=== PATIENT | female | born 1990 | race Hispanic/Latino ===

== ENCOUNTER 2016-04-23 21:00 | Emergency (ER) | payer OTHER ==
[2016-04-23] MEDS ORDERED: ONDANSETRON 4MG/2ML VIAL (J2405) As Ordered ONE (22:40)
[2016-04-23 22:59] LABS: BASO % 0.3 % (0.0-1.0); EOS # 0.1 K/mm3 (0.0-0.50); EOS % 2.2 % (0.0-3.0); LARGE UNSTAINED CELL # 0.1 K/mm3 (0.0-0.4); LARGE UNSTAINED CELL % 2.2 % (0.0-4.0); LYMPH # 1.2 K/mm3 (1.5-6.5); LYMPH % 16.7 % (24.0-44.0); MEAN CORPUSCULAR HEMOGLOBIN 29.2 pg (27.0-33.0); MEAN CORPUSCULAR HGB CONC 35.1 g/dl (32.0-36.5); MEAN CORPUSCULAR VOLUME 83.1 fl (80.0-96.0); MONO # 0.6 K/mm3 (0.0-0.8); MONO % 9.4 % (0.0-5.0); NEUTROPHILS # 4.5 K/mm3 (1.8-7.7); NEUTROPHILS % 69.2 % (36.0-66.0); PLATELET COUNT, AUTOMATED 211 k/mm3 (150-450); RED CELL DISTRIBUTION WIDTH 12.7 % (11.5-14.5); WHITE BLOOD COUNT 6.5 K/mm3 (4.0-10.0)
[2016-04-23 23:50] LABS: ANION GAP 11 MEQ/L (8-16); BLOOD UREA NITROGEN 11 MG/DL (7-18); CALCIUM LEVEL 8.6 MG/DL (8.5-10.1); CARBON DIOXIDE LEVEL 27 MEQ/L (21-32); CHLORIDE LEVEL 101 MEQ/L (98-107); CREATININE FOR GFR 0.66 MG/DL (0.55-1.02); GLOMERULAR FILTRATION RATE > 60.0 (>60); GLUCOSE, FASTING 90 MG/DL (70-105); HCG, SERUM QUANTITATIVE 85367 MIU/ML; POTASSIUM SERUM 3.9 MEQ/L (3.5-5.1); SODIUM LEVEL 139 MEQ/L (136-145)
--- NOTE | 2016-04-23 23:50 | REPUSA ---
Clinical history: cramping, possible demise. Findings: Real-time transabdominal and transvaginal ultrasound images of the pelvis were obtained. Th ere is a single intrauterine gestation. The crown rump length measures 2.9 cm. heart rate measu res 197 bpm. There is no evidence of a subchorionic hemorrhage. The uterus is unremarkable. The right ovary measures 2.7 x 3.9 x 2.5 cm. The left ovary measures 3.3 x 3.7 x 1.9 cm. No adnexal masses are seen. Color Doppler flow is seen within both ovaries. There is no evidence of free fluid. Impression: Single live intrauterine measuring 9 weeks 5 days by ultrasound measurements wi th a heart rate of 197 bpm. Estimated due date is 11/21/2016. No gross abnormalities appreciated .
[2016-04-24] MEDS ORDERED: NITROFURANTOIN (MACROBID) 100 MG CAP As Ordered ONE (00:23)
--- NOTE | 2016-04-24 00:32 | EDDOCDS ---
Physician Documentation [facility] Name: Jere Roth Age: 25 yrs Sex: Female : 1990 Arrival Date: 04/23/2016 Time: 21:00 Bed I7 / 29 Private MD: [place] [facility] [place]position: 04/24/16 00:21 Discharged to Home/Self Care. Impression: Vomiting, related conditions, unspecified, Urinary tract infection, site not specified. - Condition is Stable. - Discharge Instructions: Clear Liquid Diet, Nausea and Vomiting. - Prescriptions for ZOFRAN ODT 4 mg - dissolve 1 tablet by ORAL route 4 times per day As needed do not chew, do not swallow whole; 10 tablet. Macrobid 100 mg Oral Capsule - take 100 milligram by ORAL route every 12 hours for 10 days; 20 capsule. - Medication Reconciliation, Local Pharmacy Hours form. - Follow up: [facility]; When: Tomorrow; Reason: Recheck today's complaints, Continuance of care. - Problem is new. - Symptoms have improved. - Notes: FOLLOW UP WITH [facility] TOMORROW, RETURN TO THE ER IF THE SYMPTOMS WORSEN OR BECOME CONCERNING Historical: - Allergies: No known drug Allergies; - Home Meds: 1. none - PMHx: none; - PSHx: none; - Social history: Smoking status: Patient states was never smoker of tobacco. Patient/guardian denies using alcohol, street drugs, No barriers to communication noted, Speaks appropriately for age. - Family history: Son has/had recent upper respiratory infection symptoms. - : The pt / caregiver states he / she is not on anticoagulants. Home medication list is obtained from the patient. - Exposure Risk Screening:: None identified. RIP TAILER: 04/23 21:12 LMP 02/01/2016 ttb Vital Signs: 21:01 BP 137 / 77; Pulse 124; Resp 18; Temp 99.5(O); Pulse Ox 100% on R/A; Weight 48.53 kg / lr2 106.99 lbs (R); Height 5 ft. 4 in. (162.56 cm) (R); Pain 8/10; 04/24 00:11 BP 124 / 74; Pulse 90; Resp 18; Temp 99.2; Pulse Ox 99% ; Pain 0/10; jlm 04/23 21:01 Body Mass Index 18.37 (48.53 kg, 162.56 cm) lr2 MDM: 04/23 22:35 IV Saline Lock ordered. ck7 22:35 Ondansetron 4 mg IVP once ordered. ck7 22:35 NS 0.9% 1000 ml IV at bolus once ordered. ck7 22:35 Obtain sample by nasopharyngeal swab ordered. ck7 22:35 CBC with Diff Ordered. EDMS 22:35 MED Profile Ordered. EDMS 22:35 Hcg, Serum Quantitative Ordered. EDMS 22:35 Type & Screen Ordered. EDMS 22:36 UA Ordered. EDMS 22:36 Urine Culture Ordered. EDMS 22:36 -Influenza A&B Rapid Antigen - Nose Ordered. EDMS 22:36 US 1st trimester Ordered. EDMS 23:17 DUPLEX SCAN LIMITED (DOPPLER) Ordered. EDMS 23:47 CBC with Diff Reviewed. ck7 23:47 UA Reviewed. ck7 23:47 -Influenza A&B Rapid Antigen - Nose Reviewed. ck7 04/24 00:07 MED Profile Reviewed. ck7 00:07 Hcg, Serum Quantitative Reviewed. ck7 00:07 Type & Screen Reviewed. ck7 00:22 Nitrofurantoin 100 mg PO once ordered. ck7 Administered Medications: 04/23 23:00 Drug: Ondansetron 4 mg [ondansetron HCl 2 mg/mL intravenous solution (2 mL)] Route: rs3 IVP; Site: right antecubital; 23:00 Drug: NS 0.9% 1000 ml [sodium chloride 0.9 % intravenous solution] Route: IV; Rate: rs3 bolus; Site: right antecubital; 04/24 00:08 Follow up: IV Status: Completed infusion kc3 00:29 Drug: Nitrofurantoin 100 mg [nitrofurantoin macrocrystal 50 mg capsule (2 caps)] Route: kc3 PO; Signatures: Dispatcher [employer] EDMS Collette MárquezRN RN lf1 Sathya Delgado RPA-C RPA-Cck7 Vale Ahn RN RN ttb Rosalina Burns RN RN kc3 Bernarda Cruz RN rs3 MTDD
--- NOTE | 2016-04-24 00:32 | EDDOCDS ---
Nurse's Notes [facility] Name: Jere Roth Age: 25 yrs Sex: Female : 1990 Arrival Date: 04/23/2016 Time: 21:00 Bed I7 / 29 Private MD: MARIELOS Mccarthy Diagnosis: Vomiting; related conditions, unspecified;Urinary tract infection, site not specified Presentation: 04/23 21:10 Presenting complaint: Patient states: n/v/headache, nasal congestion x2 days. Denies ttb fevers. Adult Sepsis Screening: The patient does not have new or worsening altered mentation. Patient's respiratory rate is less than 22. Systolic blood pressure is greater than 100. Patient has a qSOFA score of 0- Negative Sepsis Screen. Suicide/Homicide risk assessment- the patient denies having any suicidal and/or homicidal ideations and does not present with any other emotional, behavioral or mental health complaints. Status: The patient is a dependent. Transition of care: patient was not received from another setting of care. 21:10 Acuity: YOHANNES Level 4 ttb 21:10 Method Of Arrival: Walkin/Carried/Asstd ttb Triage Assessment: 21:12 General: Appears well nourished, well groomed, Behavior is appropriate for age, ttb cooperative, pleasant. Pain: Location: headache 10/05. HIV screening NA for this visit Offered previously. Neurological: Level of Consciousness is awake, alert, Speech is normal, Reports headache. EENT: Reports nasal congestion nasal discharge. Cardiovascular: Chest pain is denied. Respiratory: Airway is patent Respiratory effort is even, unlabored. GI: No deficits noted. Derm: Skin is normal. LEAD SHIPPER: 21:12 LMP 02/01/2016 ttb Historical: - Allergies: No known drug Allergies; - Home Meds: 1. none - PMHx: none; - PSHx: none; - Social history: Smoking status: Patient states was never smoker of tobacco. Patient/guardian denies using alcohol, street drugs, No barriers to communication noted, Speaks appropriately for age. - Family history: Son has/had recent upper respiratory infection symptoms. - : The pt / caregiver states he / she is not on anticoagulants. Home medication list is obtained from the patient. - Exposure Risk Screening:: None identified. Screenin:56 Screening information is obtained from the patient. Fall risk: No risks identified. lf1 Assistance ADL's: requires no assistance with activities of daily living. Nutritional screening: Has had N/V for 3 or more days. Advance Directives: Currently, there is no health care proxy. 23:07 Abuse/DV Screen: The patient / caregiver reports he/she is: not in a situation that kc3 causes fear, pain or injury. home support is adequate. Assessment: 21:56 Adult Sepsis Screening: The patient does not have new or worsening altered mentation. lf1 Patient's respiratory rate is less than 22. Systolic blood pressure is greater than 100. Patient has a qSOFA score of 0- Negative Sepsis Screen. General: Appears ill, Behavior is cooperative. Pain: Location: headache Pain currently is 7 out of 10 on a pain scale. Neurological: Level of Consciousness is awake, alert. EENT: Reports nasal congestion nasal discharge. Cardiovascular: Chest pain is denied. Respiratory: Reports cough that is. GI: Reports nausea, vomiting. Derm: Skin is normal. 22:55 General: Appears in no apparent distress, Behavior is appropriate for age, cooperative, rs3 reports of headache/nausea. ordered med Zofran IVP given. IVF NS bolus infusing. . 04/24 00:30 General: Appears in no apparent distress, comfortable, Behavior is appropriate for age, kc3 cooperative. Pain: Denies pain. Respiratory: Respiratory effort is even, unlabored. Derm: Skin is pink, warm & dry. Vital Signs: 04/23 21:01 BP 137 / 77; Pulse 124; Resp 18; Temp 99.5(O); Pulse Ox 100% on R/A; Weight 48.53 kg lr2 (R); Height 5 ft. 4 in. (162.56 cm) (R); Pain 8/10; 04/24 00:11 BP 124 / 74; Pulse 90; Resp 18; Temp 99.2; Pulse Ox 99% ; Pain 0/10; jlm 04/23 21:01 Body Mass Index 18.37 (48.53 kg, 162.56 cm) lr2 Vitals: 04/23 21: Log In Time: April 23, 2016 at 21:00. lr2 ED Course: 21:01 Patient visited by Yuliana Mtz. lr2 21:01 Patient moved to Waiting lr2 21:03 BE MccarthyC is Private Physician. lr2 21:03 Patient moved to Pre RCE lr2 21:11 Triage Initiated ttb 21:38 Patient moved to Triage 2 ms18 21:56 Patient visited by Collette Márquez RN. lf1 21:56 The patient / caregiver is instructed regarding the plan of care and ED course. lf1 21:58 Patient visited by Collette Márquez RN. lf1 22:14 Sath[facility] Delgado [facility]C [facility] ck7 22:14 Myles Smith DO is Attending Physician. ck7 22:14 Patient visited by Sathya Delgado RPA-C. ck7 22:44 Patient moved to I7 / 29 ar3 22:45 Patient visited by Sathya Delgado RPA-C. ck7 22:59 Patient moved to Ultrasound dmg 23:06 Inserted saline lock: 20 gauge in right antecubital area and blood collected. The kc3 patient tolerated the procedure well. placed by CHARLES Koroma. 23:21 Patient moved to I7 / dmg 23:46 Patient visited by Sathya Delgado RPA-C. ck7 04/24 00:13 US 1st trimester Returned. EDMS 00:21 Patient visited by Sathya Delgado RPA-C. ck7 00:21 DEA Moore is Referral Physician. ck7 00:22 Discontinued IV lock intact, bleeding controlled, pressure dressing applied, No kc3 redness/swelling at site. No procedures done that require assistance. Administered Medications: 04/23 23:00 Drug: Ondansetron 4 mg [ondansetron HCl 2 mg/mL intravenous solution (2 mL)] Route: rs3 IVP; Site: right antecubital; 23:00 Drug: NS 0.9% 1000 ml [sodium chloride 0.9 % intravenous solution] Route: IV; Rate: rs3 bolus; Site: right antecubital; 04/24 00:08 Follow up: IV Status: Completed infusion kc3 00:29 Drug: Nitrofurantoin 100 mg [nitrofurantoin macrocrystal 50 mg capsule (2 caps)] Route: kc3 PO; Order Results: Lab Order: CBC with Diff; SPEC'M 04/23/16 22:45 Test: WHITE BLOOD COUNT; Value: 6.5; Range: 4.0-10.0; Units: K/mm3; Status: F Test: RED BLOOD COUNT; Value: 4.16; Range: 4.00-5.40; Units: M/mm3; Status: F Test: HEMOGLOBIN; Value: 12.1; Range: 12.0-16.0; Units: g/dl; Status: F Test: HEMATOCRIT; Value: 34.5; Range: 36.0-47.0; Abnormal: Below low normal; Units: %; Status: F Test: MEAN CORPUSCULAR VOLUME; Value: 83.1; Range: 80.0-96.0; Units: fl; Status: F Test: MEAN CORPUSCULAR HEMOGLOBIN; Value: 29.2; Range: 27.0-33.0; Units: pg; Status: F Test: MEAN CORPUSCULAR HGB CONC; Value: 35.1; Range: 32.0-36.5; Units: g/dl; Status: F Test: RED CELL DISTRIBUTION WIDTH; Value: 12.7; Range: 11.5-14.5; Units: %; Status: F Test: PLATELET COUNT, AUTOMATED; Value: 211; Range: 150-450; Units: k/mm3; Status: F Test: NEUTROPHILS %; Value: 69.2; Range: 36.0-66.0; Abnormal: Above high normal; Units: %; Status: F Test: LYMPH %; Value: 16.7; Range: 24.0-44.0; Abnormal: Below low normal; Units: %; Status: F Test: MONO %; Value: 9.4; Range: 0.0-5.0; Abnormal: Above high normal; Units: %; Status: F Test: EOS %; Value: 2.2; Range: 0.0-3.0; Units: %; Status: F Test: BASO %; Value: 0.3; Range: 0.0-1.0; Units: %; Status: F Test: LARGE UNSTAINED CELL %; Value: 2.2; Range: 0.0-4.0; Units: %; Status: F Test: NEUTROPHILS #; Value: 4.5; Range: 1.8-7.7; Units: K/mm3; Status: F Test: LYMPH #; Value: 1.2; Range: 1.5-6.5; Abnormal: Below low normal; Units: K/mm3; Status: F Test: MONO #; Value: 0.6; Range: 0.0-0.8; Units: K/mm3; Status: F Test: EOS #; Value: 0.1; Range: 0.0-0.50; Units: K/mm3; Status: F Test: BASO #; Value: 0.0; Range: 0.0-0.2; Units: K/mm3; Status: F Test: LARGE UNSTAINED CELL #; Value: 0.1; Range: 0.0-0.4; Units: K/mm3; Status: F Lab Order: MED Profile; SPEC'M 04/23/16 22:45 Test: GLUCOSE, FASTING; Value: 90; Range: 70-105; Units: MG/DL; Status: F Test: BLOOD UREA NITROGEN; Value: 11; Range: 7-18; Units: MG/DL; Status: F Test: CREATININE FOR GFR; Value: 0.66; Range: 0.55-1.02; Units: MG/DL; Status: F Test: GLOMERULAR FILTRATION RATE; Value: > 60.0; Range: >60; Status: F Test: SODIUM LEVEL; Value: 139; Range: 136-145; Units: MEQ/L; Status: F Test: POTASSIUM SERUM; Value: 3.9; Range: 3.5-5.1; Units: MEQ/L; Status: F Test: CHLORIDE LEVEL; Value: 101; Range: 98-107; Units: MEQ/L; Status: F Test: CARBON DIOXIDE LEVEL; Value: 27; Range: 21-32; Units: MEQ/L; Status: F Test: ANION GAP; Value: 11; Range: 8-16; Units: MEQ/L; Status: F Test: CALCIUM LEVEL; Value: 8.6; Range: 8.5-10.1; Units: MG/DL; Status: F Test Note: ; Units are mL/min/1.73 m2 Chronic Kidney Disease Staging per NKF: Stage I & II GFR >=60 Normal to Mildly Decreased Stage III GFR 30-59 Moderately Decreased Stage IV GFR 15-29 Severely Decreased Stage V GFR <15 Very Little GFR Left ESRD GFR <15 on NEW MEDIA STRATEGIST Lab Order: Hcg, Serum Quantitative; [facility] 04/23/16 22:45 Test: HCG, SERUM QUANTITATIVE; Value: [id number]; Units: MIU/ML; Status: F Test Note: ; GESTATIONAL AGE APPROXIMATE HCG RANGE (MIU/ML) 0.2-1 WEEK 5-50 1-2 WEEKS 50-500 2-3 WEEKS 100-5,000 3-4 WEEKS 500-10,000 4-5 WEEKS 1,000-50,000 5-6 WEEKS 10,000-100,000 6-8 WEEKS 15,000-200,000 2-3 MONTHS 10,000-100,000 NON FEMALES LESS THAN 3.0 Patient samples may contain human heterophilic antibodies that could react with immunoassays to give falsely elevated or depressed results. This assay has been designed to minimize interference from heterophilic antibodies. Elevated hCG levels have also been associated with trophoblastic disease and nontrophoblastic neoplasms. The possibility of having these diseases should be considered before a diagnosis of is made. This test is not intended for use as a surrogate marker for aiding in the diagnosis or monitoring the treatment of cancer patients. Siemens Ch[place]y methodology. Lab Order: Type & Screen; ALIZA 04/23/16 22:46 Test: BLOOD TYPE; Value: O POS; Status: F Test: AB SCREEN (INDIRECT GRAHAM)VIS; Value: NEGATIVE; Status: F Lab Order: UA; [facility] 04/23/16 22:41 Test: APPEARANCE, URINE; Value: HAZY; Range: CLEAR; Status: F Test: COLOR, URINE; Value: YELLOW; Range: YELLOW; Status: F Test: PH,URINE; Value: 5.0; Range: 5.0-9.0; Units: UNITS; Status: F Test: SPECIFIC GRAVITY URINE AUTO; Value: 1.028; Range: 1.002-1.035; Status: F Test: PROTEIN, URINE AUTO; Value: NEGATIVE; Range: NEGATIVE; Units: mg/dL; Status: F Test: GLUCOSE, URINE (UA) AUTO; Value: NEGATIVE; Range: NEGATIVE; Units: mg/dL; Status: F Test: KETONE, URINE AUTO; Value: NEGATIVE; Range: NEGATIVE; Units: mg/dL; Status: F Test: UROBILINOGEN, URINE AUTO; Value: 0.2; Range: 0.0-2.0; Units: mg/dL; Status: F Test: BILIRUBIN, URINE AUTO; Value: NEGATIVE; Range: NEGATIVE; Status: F Test: NITRITE, URINE AUTO; Value: NEGATIVE; Range: NEGATIVE; Status: F Test: LEUKOCYTE ESTERASE, URINE AUTO; Value: 2+; Range: NEGATIVE; Abnormal: Above high normal; Status: F Test: BLOOD, URINE BLOOD; Value: NEGATIVE; Range: NEGATIVE; Status: F Test: WBC, URINE AUTO; Value: 13; Range: 0-3; Abnormal: Above high normal; Units: /HPF; Status: F Test: RBC, URINE AUTO; Value: 6; Range: 0-3; Abnormal: Above high normal; Units: /HPF; Status: F Test: BACTERIA, URINE AUTO; Value: 1+; Range: NEGATIVE; Abnormal: Above high normal; Status: F Test: SQUAMOUS EPITHELIAL CELL UR AU; Value: 2; Range: 0-6; Units: /HPF; Status: F Test: MUCUS, URINE; Value: SMALL; Range: NEGATIVE; Status: F Test: HYALINE CAST, URINE AUTO; Value: 0; Range: 0-1; Units: /LPF; Status: F Lab Order: -Influenza A&B Rapid Antigen - Nose; SPEC'M 04/23/16 22:45 Test: INFLUENZA A RAPID SCR by ICA; Value: INFLUENZA A RESULTS NEGATIVE; Status: F Test: INFLUENZA A RAPID SCR by ICA; Value: Comments:; Status: F Test: INFLUENZA B RAPID SCR by ICA; Value: INFLUENZA B RESULTS NEGATIVE; Status: F Test Note: ; The Influenza test is a direct rapid immunoassay for the qualitative detection of Influenza viral antigen. Cell culture (Viral Culture) testing should be considered to confirm NEGATIVE results and to assist in detecting other viruses that can provide similar clinical symptoms. Please contact the lab within 24 hours ([phone]) if confirmatory testing is desired. Radiology Order: US 1st trimester Test: US 1st trimester REASON FOR EXAMINATION: R/O DEMISE; ; Clinical history: cramping, possible demise.; Findings: Real-time transabdominal and transvaginal ultrasound images of the pelvis were obtained. Th; ere is a single intrauterine gestation. The crown rump length measures 2.9 cm. heart rate measu; res 197 bpm. There is no evidence of a subchorionic hemorrhage. The uterus is unremarkable. The right; ovary measures 2.7 x 3.9 x 2.5 cm. The left ovary measures 3.3 x 3.7 x 1.9 cm. No adnexal masses are; seen. Color Doppler flow is seen within both ovaries. There is no evidence of free fluid.; Impression: Single live intrauterine measuring 9 weeks 5 days by ultrasound measurements wi; th a heart rate of 197 bpm. Estimated due date is 11/21/2016. No gross abnormalities appreciated; .; ; Outcome: 04/23 23:06 Ultrasound Study completed. kc3 04/24 00:21 Discharge ordered by Provider. ck7 00:29 Discharge Assessment: Patient awake, alert and oriented x 3. No cognitive and/or kc3 functional deficits noted. Patient verbalized understanding of disposition instructions. patient administered narcotics - no. The following High Risk Discharge criteria are identified: None. Discharged to home ambulatory. Condition: stable. Discharge instructions given to patient, Instructed on discharge instructions, follow up and referral plans. medication usage, Demonstrated understanding of instructions, medications, Pt was receptive of discharge instructions/ teaching. Prescriptions given X 2. Property :Personal belongings accompany Pt. 00:30 Patient left the ED. kc3 Signatures: Dispatcher [employer] EDMaryanne Soliz Lisa, RN RN lf1 Bernarda Cruz,RN RN rs3 Ariela Finnegan, REPORT CHECKER REPORT CHECKER ar3 Sathya Delgado, RPA-C RPA-Cck7 Vale Ahn, RN RN Mya Fields, Global Safety Officer Unit Charo Whipple,RN RN [id number] Rosalina Burns,RN RN kc3 Yuliana Mtz2 [facility]
--- NOTE | 2016-04-26 01:32 | EDDOCDS ---
Nurse's Notes [facility] Name: Jere Roth Age: 25 yrs Sex: Female : 1990 Arrival Date: 04/23/2016 Time: 21:00 Bed I7 / 29 Private MD: MARIELOS Mccarthy Diagnosis: Vomiting; related conditions, unspecified;Urinary tract infection, site not specified Presentation: 04/23 21:10 Presenting complaint: Patient states: n/v/headache, nasal congestion x2 days. Denies ttb fevers. Adult Sepsis Screening: The patient does not have new or worsening altered mentation. Patient's respiratory rate is less than 22. Systolic blood pressure is greater than 100. Patient has a qSOFA score of 0- Negative Sepsis Screen. Suicide/Homicide risk assessment- the patient denies having any suicidal and/or homicidal ideations and does not present with any other emotional, behavioral or mental health complaints. Status: The patient is a dependent. Transition of care: patient was not received from another setting of care. 21:10 Acuity: YHOANNES Level 4 ttb 21:10 Method Of Arrival: Walkin/Carried/Asstd ttb Triage Assessment: 21:12 General: Appears well nourished, well groomed, Behavior is appropriate for age, ttb cooperative, pleasant. Pain: Location: headache 10/05. HIV screening NA for this visit Offered previously. Neurological: Level of Consciousness is awake, alert, Speech is normal, Reports headache. EENT: Reports nasal congestion nasal discharge. Cardiovascular: Chest pain is denied. Respiratory: Airway is patent Respiratory effort is even, unlabored. GI: No deficits noted. Derm: Skin is normal. DIE TESTER: 21:12 LMP 02/01/2016 ttb Historical: - Allergies: No known drug Allergies; - Home Meds: 1. none - PMHx: none; - PSHx: none; - Social history: Smoking status: Patient states was never smoker of tobacco. Patient/guardian denies using alcohol, street drugs, No barriers to communication noted, Speaks appropriately for age. - Family history: Son has/had recent upper respiratory infection symptoms. - : The pt / caregiver states he / she is not on anticoagulants. Home medication list is obtained from the patient. - Exposure Risk Screening:: None identified. Screenin:56 Screening information is obtained from the patient. Fall risk: No risks identified. lf1 Assistance ADL's: requires no assistance with activities of daily living. Nutritional screening: Has had N/V for 3 or more days. Advance Directives: Currently, there is no health care proxy. 23:07 Abuse/DV Screen: The patient / caregiver reports he/she is: not in a situation that kc3 causes fear, pain or injury. home support is adequate. Assessment: 21:56 Adult Sepsis Screening: The patient does not have new or worsening altered mentation. lf1 Patient's respiratory rate is less than 22. Systolic blood pressure is greater than 100. Patient has a qSOFA score of 0- Negative Sepsis Screen. General: Appears ill, Behavior is cooperative. Pain: Location: headache Pain currently is 7 out of 10 on a pain scale. Neurological: Level of Consciousness is awake, alert. EENT: Reports nasal congestion nasal discharge. Cardiovascular: Chest pain is denied. Respiratory: Reports cough that is. GI: Reports nausea, vomiting. Derm: Skin is normal. 22:55 General: Appears in no apparent distress, Behavior is appropriate for age, cooperative, rs3 reports of headache/nausea. ordered med Zofran IVP given. IVF NS bolus infusing. . 04/24 00:30 General: Appears in no apparent distress, comfortable, Behavior is appropriate for age, kc3 cooperative. Pain: Denies pain. Respiratory: Respiratory effort is even, unlabored. Derm: Skin is pink, warm & dry. Vital Signs: 04/23 21:01 BP 137 / 77; Pulse 124; Resp 18; Temp 99.5(O); Pulse Ox 100% on R/A; Weight 48.53 kg lr2 (R); Height 5 ft. 4 in. (162.56 cm) (R); Pain 8/10; 04/24 00:11 BP 124 / 74; Pulse 90; Resp 18; Temp 99.2; Pulse Ox 99% ; Pain 0/10; jlm 04/23 21:01 Body Mass Index 18.37 (48.53 kg, 162.56 cm) lr2 Vitals: 04/23 21: Log In Time: April 23, 2016 at 21:00. lr2 ED Course: 21:01 Patient visited by Yuliana Mtz. lr2 21:01 Patient moved to Waiting lr2 21:03 BE MccarthyC is Private Physician. lr2 21:03 Patient moved to Pre RCE lr2 21:11 Triage Initiated ttb 21:38 Patient moved to Triage 2 ms18 21:56 Patient visited by Collette Márquez RN. lf1 21:56 The patient / caregiver is instructed regarding the plan of care and ED course. lf1 21:58 Patient visited by Collette Márquez RN. lf1 22:14 Sathay Delgado RPA-C is [facility]. ck7 22:14 Myles Smith DO is Attending Physician. ck7 22:14 Patient visited by Sathya Delgado RPA-C. ck7 22:44 Patient moved to I7 / 29 ar3 22:45 Patient visited by Sathya Delgado RPA-C. ck7 22:59 Patient moved to Ultrasound dmg 23:06 Inserted saline lock: 20 gauge in right antecubital area and blood collected. The kc3 patient tolerated the procedure well. placed by CHARLES Koroma. 23:21 Patient moved to I7 / 29 dmg 23:46 Patient visited by Sathya Delgado RPA-C. ck7 04/24 00:13 US 1st trimester Returned. EDMS 00:21 Patient visited by Sathya Delgado RPA-C. ck7 00:21 Gunnar Blair OB is Referral Physician. ck7 00:22 Discontinued IV lock intact, bleeding controlled, pressure dressing applied, No kc3 redness/swelling at site. No procedures done that require assistance. 01:42 [facility] [place] Agreement was scanned into [employer] and attached to record. hs2 01:44 Patient name changed from Boniarie\S\\S\Ira\S\ to Boniarie\S\ \S\Ira. EDMS 10:21 T-Sheet-- Draft Copy was scanned into [employer] and attached to record. gb Administered Medications: 04/23 23:00 Drug: Ondansetron 4 mg [ondansetron HCl 2 mg/mL intravenous solution (2 mL)] Route: rs3 IVP; Site: right antecubital; 23:00 Drug: NS 0.9% 1000 ml [sodium chloride 0.9 % intravenous solution] Route: IV; Rate: rs3 bolus; Site: right antecubital; 04/24 00:08 Follow up: IV Status: Completed infusion kc3 00:29 Drug: Nitrofurantoin 100 mg [nitrofurantoin macrocrystal 50 mg capsule (2 caps)] Route: kc3 PO; Order Results: Lab Order: CBC with Diff; SPEC'M 04/23/16 22:45 Test: WHITE BLOOD COUNT; Value: 6.5; Range: 4.0-10.0; Units: K/mm3; Status: F Test: RED BLOOD COUNT; Value: 4.16; Range: 4.00-5.40; Units: M/mm3; Status: F Test: HEMOGLOBIN; Value: 12.1; Range: 12.0-16.0; Units: g/dl; Status: F Test: HEMATOCRIT; Value: 34.5; Range: 36.0-47.0; Abnormal: Below low normal; Units: %; Status: F Test: MEAN CORPUSCULAR VOLUME; Value: 83.1; Range: 80.0-96.0; Units: fl; Status: F Test: MEAN CORPUSCULAR HEMOGLOBIN; Value: 29.2; Range: 27.0-33.0; Units: pg; Status: F Test: MEAN CORPUSCULAR HGB CONC; Value: 35.1; Range: 32.0-36.5; Units: g/dl; Status: F Test: RED CELL DISTRIBUTION WIDTH; Value: 12.7; Range: 11.5-14.5; Units: %; Status: F Test: PLATELET COUNT, AUTOMATED; Value: 211; Range: 150-450; Units: k/mm3; Status: F Test: NEUTROPHILS %; Value: 69.2; Range: 36.0-66.0; Abnormal: Above high normal; Units: %; Status: F Test: LYMPH %; Value: 16.7; Range: 24.0-44.0; Abnormal: Below low normal; Units: %; Status: F Test: MONO %; Value: 9.4; Range: 0.0-5.0; Abnormal: Above high normal; Units: %; Status: F Test: EOS %; Value: 2.2; Range: 0.0-3.0; Units: %; Status: F Test: BASO %; Value: 0.3; Range: 0.0-1.0; Units: %; Status: F Test: LARGE UNSTAINED CELL %; Value: 2.2; Range: 0.0-4.0; Units: %; Status: F Test: NEUTROPHILS #; Value: 4.5; Range: 1.8-7.7; Units: K/mm3; Status: F Test: LYMPH #; Value: 1.2; Range: 1.5-6.5; Abnormal: Below low normal; Units: K/mm3; Status: F Test: MONO #; Value: 0.6; Range: 0.0-0.8; Units: K/mm3; Status: F Test: EOS #; Value: 0.1; Range: 0.0-0.50; Units: K/mm3; Status: F Test: BASO #; Value: 0.0; Range: 0.0-0.2; Units: K/mm3; Status: F Test: LARGE UNSTAINED CELL #; Value: 0.1; Range: 0.0-0.4; Units: K/mm3; Status: F Lab Order: MED Profile; [facility]' 04/23/16 22:45 Test: GLUCOSE, FASTING; Value: 90; Range: 70-105; Units: MG/DL; Status: F Test: BLOOD UREA NITROGEN; Value: 11; Range: 7-18; Units: MG/DL; Status: F Test: CREATININE FOR GFR; Value: 0.66; Range: 0.55-1.02; Units: MG/DL; Status: F Test: GLOMERULAR FILTRATION RATE; Value: > 60.0; Range: >60; Status: F Test: SODIUM LEVEL; Value: 139; Range: 136-145; Units: MEQ/L; Status: F Test: POTASSIUM SERUM; Value: 3.9; Range: 3.5-5.1; Units: MEQ/L; Status: F Test: CHLORIDE LEVEL; Value: 101; Range: 98-107; Units: MEQ/L; Status: F Test: CARBON DIOXIDE LEVEL; Value: 27; Range: 21-32; Units: MEQ/L; Status: F Test: ANION GAP; Value: 11; Range: 8-16; Units: MEQ/L; Status: F Test: CALCIUM LEVEL; Value: 8.6; Range: 8.5-10.1; Units: MG/DL; Status: F Test Note: ; Units are mL/min/1.73 m2 Chronic Kidney Disease Staging per NKF: Stage I & II GFR >=60 Normal to Mildly Decreased Stage III GFR 30-59 Moderately Decreased Stage IV GFR 15-29 Severely Decreased Stage V GFR <15 Very Little GFR Left ESRD GFR <15 on LADLE PULLER Lab Order: Hcg, Serum Quantitative; SPEC04/23/16 22:45 Test: HCG, SERUM QUANTITATIVE; Value: 61452; Units: MIU/ML; Status: F Test Note: ; GESTATIONAL AGE APPROXIMATE HCG RANGE (MIU/ML) 0.2-1 WEEK 5-50 1-2 WEEKS 50-500 2-3 WEEKS 100-5,000 3-4 WEEKS 500-10,000 4-5 WEEKS 1,000-50,000 5-6 WEEKS 10,000-100,000 6-8 WEEKS 15,000-200,000 2-3 MONTHS 10,000-100,000 NON FEMALES LESS THAN 3.0 Patient samples may contain human heterophilic antibodies that could react with immunoassays to give falsely elevated or depressed results. This assay has been designed to minimize interference from heterophilic antibodies. Elevated hCG levels have also been associated with trophoblastic disease and nontrophoblastic neoplasms. The possibility of having these diseases should be considered before a diagnosis of is made. This test is not intended for use as a surrogate marker for aiding in the diagnosis or monitoring the treatment of cancer patients. [employer] methodology. Lab Order: Type & Screen; SPEC04/23/16 22:46 Test: BLOOD TYPE; Value: O POS; Status: F Test: AB SCREEN (INDIRECT GRAHAM)VIS; Value: NEGATIVE; Status: F Lab Order: UA; SPEC04/23/16 22:41 Test: APPEARANCE, URINE; Value: HAZY; Range: CLEAR; Status: F Test: COLOR, URINE; Value: YELLOW; Range: YELLOW; Status: F Test: PH,URINE; Value: 5.0; Range: 5.0-9.0; Units: UNITS; Status: F Test: SPECIFIC GRAVITY URINE AUTO; Value: 1.028; Range: 1.002-1.035; Status: F Test: PROTEIN, URINE AUTO; Value: NEGATIVE; Range: NEGATIVE; Units: mg/dL; Status: F Test: GLUCOSE, URINE (UA) AUTO; Value: NEGATIVE; Range: NEGATIVE; Units: mg/dL; Status: F Test: KETONE, URINE AUTO; Value: NEGATIVE; Range: NEGATIVE; Units: mg/dL; Status: F Test: UROBILINOGEN, URINE AUTO; Value: 0.2; Range: 0.0-2.0; Units: mg/dL; Status: F Test: BILIRUBIN, URINE AUTO; Value: NEGATIVE; Range: NEGATIVE; Status: F Test: NITRITE, URINE AUTO; Value: NEGATIVE; Range: NEGATIVE; Status: F Test: LEUKOCYTE ESTERASE, URINE AUTO; Value: 2+; Range: NEGATIVE; Abnormal: Above high normal; Status: F Test: BLOOD, URINE BLOOD; Value: NEGATIVE; Range: NEGATIVE; Status: F Test: WBC, URINE AUTO; Value: 13; Range: 0-3; Abnormal: Above high normal; Units: /HPF; Status: F Test: RBC, URINE AUTO; Value: 6; Range: 0-3; Abnormal: Above high normal; Units: /HPF; Status: F Test: BACTERIA, URINE AUTO; Value: 1+; Range: NEGATIVE; Abnormal: Above high normal; Status: F Test: SQUAMOUS EPITHELIAL CELL UR AU; Value: 2; Range: 0-6; Units: /HPF; Status: F Test: MUCUS, URINE; Value: SMALL; Range: NEGATIVE; Status: F Test: HYALINE CAST, URINE AUTO; Value: 0; Range: 0-1; Units: /LPF; Status: F Lab Order: Urine Culture; SPEC'M 04/23/16 22:41 Test: URINE CULTURE; Value: <EXTERNAL COMMENT eCWMed> FULL REPORT IN LAB NOTES (eCW and Medent).; Status: F Test: URINE CULTURE; Value: URINE CULTURE RESULT NO GROWTH CLINICAL SIGNIFICANCE 1 ORGANISM; Status: F Lab Order: -Influenza A&B Rapid Antigen - Nose; SPEC'M 04/23/16 22:45 Test: INFLUENZA A RAPID SCR by ICA; Value: INFLUENZA A RESULTS NEGATIVE; Status: F Test: INFLUENZA A RAPID SCR by ICA; Value: Comments:; Status: F Test: INFLUENZA B RAPID SCR by ICA; Value: INFLUENZA B RESULTS NEGATIVE; Status: F Test Note: ; The Influenza test is a direct rapid immunoassay for the qualitative detection of Influenza viral antigen. Cell culture (Viral Culture) testing should be considered to confirm NEGATIVE results and to assist in detecting other viruses that can provide similar clinical symptoms. Please contact the lab within 24 hours ([phone] if confirmatory testing is desired. Radiology Order: US 1st trimester Test: US 1st trimester REASON FOR EXAMINATION: R/O DEMISE; ; Clinical history: cramping, possible demise.; Findings: Real-time transabdominal and transvaginal ultrasound images of the pelvis were obtained. Th; ere is a single intrauterine gestation. The crown rump length measures 2.9 cm. heart rate measu; res 197 bpm. There is no evidence of a subchorionic hemorrhage. The uterus is unremarkable. The right; ovary measures 2.7 x 3.9 x 2.5 cm. The left ovary measures 3.3 x 3.7 x 1.9 cm. No adnexal masses are; seen. Color Doppler flow is seen within both ovaries. There is no evidence of free fluid.; Impression: Single live intrauterine measuring 9 weeks 5 days by ultrasound measurements wi; th a heart rate of 197 bpm. Estimated due date is 11/21/2016. No gross abnormalities appreciated; .; ; Outcome: 04/23 23:06 Ultrasound Study completed. kc3 04/24 00:21 Discharge ordered by Provider. ck7 00:29 Discharge Assessment: Patient awake, alert and oriented x 3. No cognitive and/or kc3 functional deficits noted. Patient verbalized understanding of disposition instructions. patient administered narcotics - no. The following High Risk Discharge criteria are identified: None. Discharged to home ambulatory. Condition: stable. Discharge instructions given to patient, Instructed on discharge instructions, follow up and referral plans. medication usage, Demonstrated understanding of instructions, medications, Pt was receptive of discharge instructions/ teaching. Prescriptions given X 2. Property :Personal belongings accompany Pt. 00:30 Patient left the ED. kc3 Signatures: Dispatcher [employer] Maryanne Franco Gloria, Reg Reg Collette ZimmerRN RN lf1 Bernarda Cruz RN RN rs3 Ariela Finnegan, CLEAN ROOM TECHNICIAN CLEAN ROOM TECHNICIAN ar3 Danny, Sathya, RPA-C RPA-Cck7 Vale Ahn, RN RN ttb Mya Ryan, Pot Sander Unit deannam Charo Rose,RN RN ms18 Rosalina Burns,RN RN kc3 Blanca Tovar, Reg Reg hs2 Yuliana Mtz lr2 Chart Complete MTDD
--- NOTE | 2016-04-26 01:32 | EDDOCDS ---
Physician Documentation [facility] Name: Jere Roth Age: 25 yrs Sex: Female : 1990 Arrival Date: 04/23/2016 Time: 21:00 Bed I7 / 29 Private MD: Shari [facility]: 04/24/16 00:21 Discharged to Home/Self Care. Impression: Vomiting, related conditions, unspecified, Urinary tract infection, site not specified. - Condition is Stable. - Discharge Instructions: Clear Liquid Diet, Nausea and Vomiting. - Prescriptions for ZOFRAN ODT 4 mg - dissolve 1 tablet by ORAL route 4 times per day As needed do not chew, do not swallow whole; 10 tablet. Macrobid 100 mg Oral Capsule - take 100 milligram by ORAL route every 12 hours for 10 days; 20 capsule. - Medication Reconciliation, Local Pharmacy Hours form. - Follow up: Gunnar Blair OB; When: Tomorrow; Reason: Recheck today's complaints, Continuance of care. - Problem is new. - Symptoms have improved. - Notes: FOLLOW UP WITH GUNNAR BLAIR OB TOMORROW, RETURN TO THE ER IF THE SYMPTOMS WORSEN OR BECOME CONCERNING Historical: - Allergies: No known drug Allergies; - Home Meds: 1. none - PMHx: none; - PSHx: none; - Social history: Smoking status: Patient states was never smoker of tobacco. Patient/guardian denies using alcohol, street drugs, No barriers to communication noted, Speaks appropriately for age. - Family history: Son has/had recent upper respiratory infection symptoms. - : The pt / caregiver states he / she is not on anticoagulants. Home medication list is obtained from the patient. - Exposure Risk Screening:: None identified. GROUP COUNSELOR: 04/23 21:12 LMP 02/01/2016 ttb Vital Signs: 21:01 BP 137 / 77; Pulse 124; Resp 18; Temp 99.5(O); Pulse Ox 100% on R/A; Weight 48.53 kg / lr2 106.99 lbs (R); Height 5 ft. 4 in. (162.56 cm) (R); Pain 8/10; 04/24 00:11 BP 124 / 74; Pulse 90; Resp 18; Temp 99.2; Pulse Ox 99% ; Pain 0/10; jlm 04/23 21:01 Body Mass Index 18.37 (48.53 kg, 162.56 cm) lr2 MDM: 04/23 22:35 IV Saline Lock ordered. ck7 22:35 Ondansetron 4 mg IVP once ordered. ck7 22:35 NS 0.9% 1000 ml IV at bolus once ordered. ck7 22:35 Obtain sample by nasopharyngeal swab ordered. ck7 22:35 CBC with Diff Ordered. EDMS 22:35 MED Profile Ordered. EDMS 22:35 Hcg, Serum Quantitative Ordered. EDMS 22:35 Type & Screen Ordered. EDMS 22:36 UA Ordered. EDMS 22:36 Urine Culture Ordered. EDMS 22:36 -Influenza A&B Rapid Antigen - Nose Ordered. EDMS 22:36 US 1st trimester Ordered. EDMS 23:17 DUPLEX SCAN LIMITED (DOPPLER) Ordered. EDMS 23:47 CBC with Diff Reviewed. ck7 23:47 UA Reviewed. ck7 23:47 -Influenza A&B Rapid Antigen - Nose Reviewed. ck7 04/24 00:07 MED Profile Reviewed. ck7 00:07 Hcg, Serum Quantitative Reviewed. ck7 00:07 Type & Screen Reviewed. ck7 00:22 Nitrofurantoin 100 mg PO once ordered. ck7 01:42 [facility] [place] Payment Agreement was scanned into [employer] and attached to record. hs2 10:21 T-Sheet-- Draft Copy was scanned into [employer] and attached to record. gb Administered Medications: 04/23 23:00 Drug: Ondansetron 4 mg [ondansetron HCl 2 mg/mL intravenous solution (2 mL)] Route: rs3 IVP; Site: right antecubital; 23:00 Drug: NS 0.9% 1000 ml [sodium chloride 0.9 % intravenous solution] Route: IV; Rate: rs3 bolus; Site: right antecubital; 04/24 00:08 Follow up: IV Status: Completed infusion kc3 00:29 Drug: Nitrofurantoin 100 mg [nitrofurantoin macrocrystal 50 mg capsule (2 caps)] Route: kc3 PO; Signatures: Dispatcher [employer] EDMS Faiza Terrazas, Reg Reg gb Collette MárquezRN RN lf1 Sathya Delgado, TEMITOPE-C RPA-[facility]7 Vale Ahn RN RN ttb Rosalina Burns RN RN kc3 Blanca Tovar, Reg Reg hs2 Bernarda Cruz RN rs3 The chart was reviewed and I authenticate all verbal orders and agree with the evaluation and treatment provided.Attachments: 01:42 [facility] Payment Agreement hs2 10:21 T-Sheet-- Draft Copy gb Chart Complete MTDD
--- NOTE | 2016-04-26 01:32 | EDDOCDS ---
Physician Documentation [facility] Name: Jere Roth Age: 25 yrs Sex: Female : 1990 Arrival Date: 04/23/2016 Time: 21:00 Bed I7 / 29 Private MD: Shari [facility] Disposition: 04/24/16 00:21 Discharged to Home/Self Care. Impression: Vomiting, related conditions, unspecified, Urinary tract infection, site not specified. - Condition is Stable. - Discharge Instructions: Clear Liquid Diet, Nausea and Vomiting. - Prescriptions for ZOFRAN ODT 4 mg - dissolve 1 tablet by ORAL route 4 times per day As needed do not chew, do not swallow whole; 10 tablet. Macrobid 100 mg Oral Capsule - take 100 milligram by ORAL route every 12 hours for 10 days; 20 capsule. - Medication Reconciliation, Local Pharmacy Hours form. - Follow up: Gunnar Blair OB; When: Tomorrow; Reason: Recheck today's complaints, Continuance of care. - Problem is new. - Symptoms have improved. - Notes: FOLLOW UP WITH GUNNAR BLAIR OB TOMORROW, RETURN TO THE ER IF THE SYMPTOMS WORSEN OR BECOME CONCERNING Historical: - Allergies: No known drug Allergies; - Home Meds: 1. none - PMHx: none; - PSHx: none; - Social history: Smoking status: Patient states was never smoker of tobacco. Patient/guardian denies using alcohol, street drugs, No barriers to communication noted, Speaks appropriately for age. - Family history: Son has/had recent upper respiratory infection symptoms. - : The pt / caregiver states he / she is not on anticoagulants. Home medication list is obtained from the patient. - Exposure Risk Screening:: None identified. PRECISION THREAD GRINDER OPERATOR: 04/23 21:12 LMP 02/01/2016 ttb Vital Signs: 21:01 BP 137 / 77; Pulse 124; Resp 18; Temp 99.5(O); Pulse Ox 100% on R/A; Weight 48.53 kg / lr2 106.99 lbs (R); Height 5 ft. 4 in. (162.56 cm) (R); Pain 8/10; 04/24 00:11 BP 124 / 74; Pulse 90; Resp 18; Temp 99.2; Pulse Ox 99% ; Pain 0/10; jlm 04/23 21:01 Body Mass Index 18.37 (48.53 kg, 162.56 cm) lr2 MDM: 04/23 22:35 IV Saline Lock ordered. ck7 22:35 Ondansetron 4 mg IVP once ordered. ck7 22:35 NS 0.9% 1000 ml IV at bolus once ordered. ck7 22:35 Obtain sample by nasopharyngeal swab ordered. ck7 22:35 CBC with Diff Ordered. EDMS 22:35 MED Profile Ordered. EDMS 22:35 Hcg, Serum Quantitative Ordered. EDMS 22:35 Type & Screen Ordered. EDMS 22:36 UA Ordered. EDMS 22:36 Urine Culture Ordered. EDMS 22:36 -Influenza A&B Rapid Antigen - Nose Ordered. EDMS 22:36 US 1st trimester Ordered. EDMS 23:17 DUPLEX SCAN LIMITED (DOPPLER) Ordered. EDMS 23:47 CBC with Diff Reviewed. ck7 23:47 UA Reviewed. ck7 23:47 -Influenza A&B Rapid Antigen - Nose Reviewed. ck7 04/24 00:07 MED Profile Reviewed. ck7 00:07 Hcg, Serum Quantitative Reviewed. ck7 00:07 Type & Screen Reviewed. ck7 00:22 Nitrofurantoin 100 mg PO once ordered. ck7 01:42 [facility] [place] Payment Agreement was scanned into [employer] and attached to record. hs2 10:21 T-Sheet-- Draft Copy was scanned into [employer] and attached to record. gb Administered Medications: 04/23 23:00 Drug: Ondansetron 4 mg [ondansetron HCl 2 mg/mL intravenous solution (2 mL)] Route: rs3 IVP; Site: right antecubital; 23:00 Drug: NS 0.9% 1000 ml [sodium chloride 0.9 % intravenous solution] Route: IV; Rate: rs3 bolus; Site: right antecubital; 04/24 00:08 Follow up: IV Status: Completed infusion kc3 00:29 Drug: Nitrofurantoin 100 mg [nitrofurantoin macrocrystal 50 mg capsule (2 caps)] Route: kc3 PO; Signatures: Dispatcher [employer] EDMS Faiza Terrazas, Reg Reg gb Collette MárquezRN RN lf1 Sathya Delgado, TEMITOPE-C RPA-[facility]7 Vale Ahn RN RN ttb Rosalina Burns RN RN kc3 Blanca Tovar, Reg Reg hs2 Bernarda Cruz RN rs3 The chart was reviewed and I authenticate all verbal orders and agree with the evaluation and treatment provided.Attachments: 01:42 [facility] Payment Agreement hs2 10:21 T-Sheet-- Draft Copy gb Chart Complete MTDD
== END 2016-04-24 00:30 | disposition home or self-care (01) ==
LOC: M ED 21:00
DX: O21.9 Vomiting of pregnancy, unspecified (principal); O23.41 Unspecified infection of urinary tract in pregnancy, first trimester; Z3A.09 9 weeks gestation of pregnancy
CPT/HCPCS: 36415; 76801; 80048; 81001; 84702; 85025; 86850; 86900; 86901; 87086; 87804; 93976; 96361; 96374; 99284; J2405

== ENCOUNTER 2016-11-03 18:26 | Inpatient (IN) | payer OTHER ==
[~2016-11-03] VITALS: Ht 162.6 cm; Wt 60.0 kg
[2016-11-03 18:39] VITALS: BP 114/65
[2016-11-03] MEDS ORDERED: LACTATED RINGER'S 1000 ML IV STA (19:23)
[2016-11-03] MEDS ORDERED: BICITRA 30ML SOLN UDC PO ONE (19:30)
[2016-11-03] MEDS ORDERED: AZITHROMYCIN INJ 500 MG, VIAL MATE ADAPTER 1 EACH in D5W 250 ML IV ONE (19:30)
[2016-11-03 19:53] LABS: MEAN CORPUSCULAR HEMOGLOBIN 29.9 pg (27.0-33.0); MEAN CORPUSCULAR HGB CONC 34.2 g/dl (32.0-36.5); MEAN CORPUSCULAR VOLUME 87.4 fl (80.0-96.0); RED CELL DISTRIBUTION WIDTH 13.8 % (11.5-14.5); WHITE BLOOD COUNT 10.1 K/mm3 (4.0-10.0)
[2016-11-03] MEDS ORDERED: OXYTOCIN INJ 10 UNITS/ML VIAL (J2590) As Ordered ONE (20:38)
[2016-11-03] MEDS ORDERED: MORPHINE PRES-FREE INJ 10 MG/10 ML VIAL (J2274) As Ordered ONE (20:38)
[2016-11-03] MEDS ORDERED: ONDANSETRON 4MG/2ML VIAL (J2405) IV PRN ×2 (20:51→22:00)
[2016-11-03] MEDS ORDERED: NALOXONE INJ 0.4 MG/1 ML VIAL (J2310) IV PRN ×2 (20:51)
[2016-11-03] MEDS ORDERED: METOCLOPRAMIDE INJ 10MG/2ML VIAL (J2765) IV PRN (20:51)
[2016-11-03] MEDS ORDERED: PHENYLephrine HCL 500 MCG/5 ML (100MCG/ML) SYRINGE (J2370) As Ordered ONE (21:08)
[2016-11-03] MEDS ORDERED: KETOROLAC 30 MG/ML VIAL (J1885) As Ordered ONE (21:47)
[2016-11-03] MEDS ORDERED: fentaNYL 100 MCG/2 ML INJECTION (J3010) IV PRN (22:00)
[2016-11-03] MEDS ORDERED: NALBUPHINE HCL 10 MG/ML AMP (J2300) IV PRN (22:00)
[2016-11-03] MEDS ORDERED: KETOROLAC 30 MG/ML VIAL (J1885) IV PRN (22:00)
[2016-11-03] MEDS ORDERED: MEPERIDINE INJ 25 MG/ML VIAL (J2175) IV PRN (22:00)
[2016-11-03] MEDS ORDERED: fentaNYL 100 MCG/2 ML INJECTION (J3010) As Ordered ONE (22:18)
[2016-11-03] MEDS ORDERED: PERCOCET 5MG/325MG TAB As Ordered ONE (22:19)
[2016-11-03] MEDS ORDERED: PERCOCET 5MG/325MG TAB PO PRN (22:45)
[2016-11-03 22:50] VITALS: BP 121/79
[2016-11-03 23:20] VITALS: BP 113/71
[2016-11-03 23:50] VITALS: BP 108/63
[2016-11-04 00:50] VITALS: BP 112/69
[2016-11-04 01:50] VITALS: BP 116/68
[2016-11-04] MEDS: NALBUPHINE HCL 10 MG/ML AMP (J2300) IV PRN ×2 (02:07→07:32)
[2016-11-04 06:15] VITALS: BP 127/60
[2016-11-04] MEDS: LR 1,000 ML IV SCH ×2 (07:51→15:51)
[2016-11-04] MEDS ORDERED: PROMETHAZINE 25 MG TAB PO PRN (08:00)
[2016-11-04] MEDS ORDERED: RHOGAM 300 MCG (1500 IU) INJ (J2790) IM SCH (08:00)
[2016-11-04] MEDS ORDERED: METHYLERGONOVINE MALEATE 0.2 MG/ML VIAL (J2210) IM PRN (08:00)
[2016-11-04] MEDS ORDERED: PERCOCET 5MG/325MG TAB PO PRN ×2 (08:00)
[2016-11-04] MEDS ORDERED: MEASLES,MUMPS,RUBELLA VACCINE INJ (MMR-II) (90707) SC SCH (08:00)
[2016-11-04] MEDS ORDERED: ONDANSETRON 4MG/2ML VIAL (J2405) IV PRN (08:00)
[2016-11-04] MEDS: KETOROLAC 30 MG/ML VIAL (J1885) IV SCH ×3 (08:00→20:00)
[2016-11-04] MEDS: PRENATAL VITAMINS CHEWABLE TABLET PO SCH (09:29)
[2016-11-04] MEDS: DOCUSATE SODIUM 100 MG CAP PO SCH ×2 (09:30→20:33)
[2016-11-04 10:00] VITALS: BP 126/73
[2016-11-04 14:00] VITALS: BP 114/76
[2016-11-04 18:00] VITALS: BP 120/75
[2016-11-05] MEDS: KETOROLAC 30 MG/ML VIAL (J1885) IV SCH (02:00)
[2016-11-05 06:15] VITALS: BP 110/58
[2016-11-05 06:34] LABS: MEAN CORPUSCULAR HEMOGLOBIN 30.5 pg (27.0-33.0); MEAN CORPUSCULAR HGB CONC 34.9 g/dl (32.0-36.5); MEAN CORPUSCULAR VOLUME 87.4 fl (80.0-96.0); RED CELL DISTRIBUTION WIDTH 13.8 % (11.5-14.5)
[2016-11-05] MEDS: DOCUSATE SODIUM 100 MG CAP PO SCH (09:00)
[2016-11-05] MEDS: PRENATAL VITAMINS CHEWABLE TABLET PO SCH (09:00)
[2016-11-05] MEDS ORDERED: IBUPROFEN 800 MG TAB PO SCH (10:00)
[2016-11-05] MEDS ORDERED: OXYC1TAB23 PO ×2 (11:13→11:14)
[2016-11-05] MEDS ORDERED: IBUP-1114 PO (11:13)
[2016-11-05] MEDS ORDERED: COLA100C5 PO (11:14)
[2016-11-05] MEDS ORDERED: PRENTAB9 PO (11:14)
== END 2016-11-05 12:30 | disposition home or self-care (01) | DRG 766 ==
LOC: M LDO 18:26 → M LDI 19:03 → M OBS 22:40
PROVIDERS: ADMIT Obstetrics & Gynecology; ATTEND Obstetrics & Gynecology
PROC: 10D00Z1 Extraction of Products of Conception, Low, Open Approach (ICD-10-PCS; principal; 2016-11-04)
DX: O32.1XX0 Maternal care for breech presentation, not applicable or unspecified (principal); Z37.0 Single live birth; Z3A.37 37 weeks gestation of pregnancy; O42.02 Full-term premature rupture of membranes, onset of labor within 24 hours of rupture